=== PATIENT | male | born 1980 | race Caucasian/White ===

== ENCOUNTER 2023-06-01 17:27 | Emergency (ER) | payer MEDICARE, SELFPAY ==
--- NOTE | 2023-06-01 17:32 | ED.MALEGU ---
HPI - Male Genitourinary General Chief complaint: Urogenital-Male Stated complaint: Penis Pain Time Seen by Provider: 06/01/23 17:50 Source: patient and RN notes reviewed Mode of arrival: ambulatory Limitations: no limitations History of Present Illness HPI Narrative: 42-year-old male presents concern for penile shaft pain. He reports he only has the pain when he has direction and there was pressure applied to his penis such as from his clothes in the morning. He is currently not having pain. He denies dysuria, frequency, urgency, abdominal pain. He denies testicular or scrotal redness, swelling, pain. He denies penile discharge or exposure to STDs. He reports history of Peyronie disease for which had similar symptoms and he has had a temporary medication. Related Data Home Medications Medication Instructions Recorded Confirmed cariprazine 1.5 mg capsule 1.5 mg PO DAILY 06/01/23 06/01/23 (Vraylar) gabapentin 100 mg capsule 100 mg PO DIRECTED 06/01/23 06/01/23 lamotrigine 200 mg tablet 200 mg PO HS 06/01/23 06/01/23 linaclotide 72 mcg capsule 72 mcg PO DIRECTED 06/01/23 06/01/23 (Linzess) Allergies Allergy/AdvReac Type Severity Reaction Status Date / Time No Known Allergies Allergy Verified 06/01/23 17:38 Review of Systems Review of Systems: CONSTITUTIONAL: Denies malaise, chills, sweats, or fever. CARDIOVASCULAR: Denies chest pain, palpitations, or edema. RESPIRATORY: Denies cough or dyspnea. GASTROINTESTINAL: Denies abdominal pain, nausea, vomiting, diarrhea GENITOURINARY: Denies dysuria, frequency, urgency, suprapubic pressure. Denies flank pain or hematuria. Reports penile shaft pain when direct. Denies penile discharge SKIN: Denies lesions, rash or itching. MUSCULOSKELETAL: Denies back pain or myalgia. All systems reviewed & are unremarkable except as noted in HPI and below PMFSH Social History Social History (Updated 04/27/19 @ 08:57 by Marce Eduardo) Smoking status: Smoker, status unknown Gender identity (if verbalized by the patient): Male Comments At time of signature, agree with nursing past medical, surgical, social and family history. There is no relevant family history pertinent to the presenting complaint Exam Narrative: GENERAL: Well-appearing, well-nourished, and in no acute distress. HEAD: Normocephalic. EYES: PERRLA, conjunctivae clear. NECK: Supple. No lymphadenopathy CHEST: Clear to auscultation. No respiratory distress. HEART: Regular rate and rhythm. ABDOMEN: Soft, nontender upon palpation, nondistended, normal active bowel sounds, no palpable or pulsatile masses, no guarding. No CVA tenderness SKIN: Warm, dry, no rash. NEURO: Alert and oriented x3. PSYCH: Normal mood and affect : Male General Exam: Yes normal external exam Penis: Yes normal penis and Yes circumcised Meatus: meatus normal Scrotum: scrotum normal Testes: Testes normal Course Course Emergency Course: Discussed normal exam findings with patient. I advised patient that I am not comfortable prescribing most medications that help pay pronators disease. I will prescribe a short dose of a supplement that may help while he waits to see Urology for further evaluation. Patient is aware of, understands and agrees to treatment plan. Anticipatory guidance given. Patient agrees to follow-up as directed and is aware of reasons to seek care at the emergency department. Portions of this record may have been created with voice recognition software Level of Care: [facility] Visit Vital Signs Vital signs: Reviewed. MDM - Male Genitourinary MDM Narrative Medical decision making narrative: Exam findings show no acute concerns or changes; patient is non-toxic appearing and is in no distress. Patient is appropriate for outpatient treatment and follow-up. Differential Diagnosis Differential diagnosis: Likely urinary tract infection, priapism, urethritis, epididymitis, genital herpes simplex
[2023-06-01 17:38] VITALS: BP 113/98; PULSE 79; RESP 16; TEMP 36.1; O2SAT 100
[2023-06-01 17:40] VITALS: BP 113/98; PULSE 79; RESP 16; TEMP 36.1; O2SAT 100
== END 2023-06-01 18:02 | disposition home or self-care (01) ==
PROVIDERS: Emergency Provider Nurse Practitioner
DX: N48.89 Other specified disorders of penis (principal); Z79.899 Other long term (current) drug therapy
CPT/HCPCS: 81003; 99203; G0463

== ENCOUNTER 2024-05-31 14:06 | Emergency (ER) | payer MEDICARE, SELFPAY ==
--- NOTE | ~2024-05-31 | XR_ITS ---
EXAM: XR knee LT 3V DATE: 05/31/2024 15:32 HISTORY: pain since hiking, NO INJURY . COMPARISON: None available. FINDINGS: Normal mineralization. No fracture or dislocation. No lytic or blastic lesion. Joint space s are maintained. No erosion or periosteal change. Small-volume joint fluid. IMPRESSION: No acute osseous finding in the left knee. Small knee joint effusion. Reviewed, dictated and finalized at location [facility] [employer] IMPRESSION: No acute osseous finding in the left knee. Small knee joint effusio n.
[2024-05-31 14:46] VITALS: BP 113/73; PULSE 83; RESP 16; TEMP 36.8; O2SAT 98
--- NOTE | 2024-05-31 15:25 | ED_ITS ---
HPI - Extremity Injury (Lower) General Chief Complaint: Extremity Injury, Lower Stated Complaint: L LEG PAIN Time Seen by Provider: 05/31/24 15:15 Source: patient, RN notes reviewed and old records reviewed Mode of arrival: ambulatory Limitations: no limitations History of Present Illness HPI Narrative: 43-year-old male presents to [facility] with complaints of left knee pain since hiking some trails in [place] 2 weeks ago. Patient reports that he continues to have some pain in his left knee with his normal daily 45 minute walks and that Ibuprofen is not helping. He states that he wants to get this ch ecked out since he is leaving for trip in 1 week. that will involve lot of walking. Patient has no obvious deformity to his left knee with no swelling noted is able to walk with steady gait full ROM present. MD complaint: knee injury Onset (ago): week(s) (2) Type of Injury: unknown Place: street/outdoors Severity: moderate Treatments prior to arrival: NSAIDS Related Data Home Medications ?Medication ?Instructions ?Recorded ?Confirmed ?Last Taken ?Type cariprazine 1.5 mg capsule 1.5 mg PO DAILY 06/01/23 07/09/23 Unknown History (Vraylar) gabapentin 100 mg capsule 100 mg PO DIRECTED 06/01/23 07/09/23 Unknown History lamotrigine 200 mg tablet 200 mg PO HS 06/01/23 07/09/23 Unknown History linaclotide 72 mcg capsule 72 mcg PO DIRECTED 06/01/23 07/09/23 Unknown His tory (Linzess) quetiapine 100 mg tablet 100 mg PO QHS 07/09/23 07/09/23 Unknown History cariprazine 3 mg capsule (Vraylar) mg 05/31/24 Unknown History Allergies Allergy/AdvReac Type Severity Reaction Status Date / Time fire ants AdvReac Intermediate Anaphylaxis Uncoded 05/31/24 15:00 Review of Systems Review of Systems: CONSTITUTIONAL: Denies fever, chills, or sweats. EYES: Denies visual changes, redness, or discharge. ENT: Denies rhinorrhea, congestion, sore throat, or otalgia. CARDIOVASCULAR: Denies chest pain, palpitations, or edema. RESPIRATORY: Denies cough or dyspnea. GASTROINTESTINAL: Denies abdominal pain, nausea, vomiting, or diarrhea. GENITOURINARY: Denies dysuria or hematuria. SKIN: Denies rash or itching. MUSCULOSKELETAL: Denies back pain,pain to left knee joint or myalgia. NEUROLOGIC: Denies headache, numbness, or weakness. PSYCHIATRIC: Reports history of anxiety or depression. All systems reviewed & are unremarkable except as noted in HPI and below PMFSH Past Medical History Medical History Depression History of hepatitis Irritable bowel syndrome Anxiety Social History Social History Smoking packs per day: 0 Smoking cigarettes per day: 0.0 Smoking status: Smoker, status unknown Second hand tobacco smoke exposure: No Alcohol intake: current Drinks per week: 2 Alcohol use details: beer, vodka, rum Lack of Transportation: No Lack of Food: Never True Current Housing: I Have Housing Concerned About Future Housing: No Difficulty Paying Gas/Electric Bills: No Difficulty Paying for Meds: No Currently Unemployed: Decline to Answer Education: High School Diploma/GED Difficulty w/ Childcare or Family Care: No Gender identity (if verbalized by the patient): Male Comments At time of signature, agree with nursing past medical, surgical, social and family history. There is no relevant family history pertinent to the presenting complaint Exam Narrative: GENERAL: Well-appearing, well-nourished, and in no acute distress. HEAD: Normocephalic, atraumatic. EYES: PERRLA and EOMI. ENT: Nares clear, no rhinorrhea or epistaxis. Mucous membranes moist.TM's normal throat pink with no swelling NECK: Supple. no lymphadenopathy CHEST: Clear to auscultation. No respiratory distress.SAO2 98% on room air HEART: Regular rate and rhythm. No murmur heard. Normal peripheral pulses. ABDOMEN: Soft, nontender, nondistended, normal active bowel sounds. EXTREMITIES: Normal range of motion. No edema. Patient reports pain to anterior aspect of left knee with no swelling present. Patient reports that pain is aggravated by activity., patient has full ROM of left knee with no increase in pain with bending no posterior knee swelling or pain noted.CSM intact to left knee SKIN: Warm, dry, no rash. NEURO: No focal deficits. Alert and oriented x3. Course Course Emergency Course: Patient is aware of diagnosis, understands and agrees to treatment plan.? Anticipatory guidance given.? Patient agrees to follow-up as directed and is aware of reasons to seek care at the emergency department. Portions of this record may have been created with voice recognition software Level of Care: [facility] Visit Vital Signs Vital signs: Vital Signs Temperature 36.8 C 05/31/24 14:46 Pulse Rate 83 05/31/24 14:46 Respiratory Rate 16 05/31/24 14:46 Blood Pressure 113/73 05/31/24 14:46 Pulse Oximetry 98 05/31/24 14:46 Temperature 36.8 C 05/31/24 14:46 Pulse Rate 83 05/31/24 14:46 Respiratory Rate 16 05/31/24 14:46 Blood Pressure 113/73 05/31/24 14:46 Pulse Oximetry 98 05/31/24 14:46 Reviewed MDM - Extremity Injury (Lower) Differential Diagnosis Differential diagnosis: Likely acute internal derangement of knee and other (left knee strain, joint effusion left knee.,pain left knee) Medical Records Attestation: I reviewed the patient's medical records. Imaging Data Attestation: I personally reviewed and interpreted this imaging study as follows: My impression: small knee joint effusion, no fracture or misalignment Radiologist's impression: [facility] [address] [place] [address] XRay Report Signed Patient: Marbin Hogan : 1980 MR#: [id number] Age: 43 Acct:[id number] Loc: [facility] ADM Date: 05/31/24Attending Dr: Ordering Physician: Saira Ramirez APRN Date of Service: 05/31/24 Procedure(s): XR knee LT 3V Accession Number(s): [id number] cc: Saira Ramirez APRN; UNKNOWN,DOCTOR~ EXAM: XR knee LT 3V DATE: 05/31/2024 15:32 HISTORY: pain since hiking, NO INJURY . COMPARISON: None available. FINDINGS: Normal mineralization. No fracture or dislocation. No lytic or blastic lesion. Joint spaces are maintained. No erosion or periosteal change. Small-volume joint fluid. IMPRESSION: No acute osseous finding in the left knee. Small knee joint effusion. Reviewed, dictated and finalized at location [facility] [employer] Please be advised this is a medical document. It is intended for [id number] communication. It is written in medical language and may contain unfamiliar abbreviations or verbiage. Medical documents are intended to carry relevant information, facts as evident, and the clinical opinion of the practitioner at the time of the encounter. This report may have been done utilizing a voice recognition system. Attempts have been made to correct errors. However, there may be uncorrected grammatical, spelling, and recognition errors present. The file time of this note does not necessarily represent the time the patient was seen. Dictated By: Liam Castro MD 05/31/24 1534 Signed By: <Electronically signed by Liam Castro MD in OV> Critical Care Time Critical Care Time Critical Care Time: No Discharge Plan Discharge Clinical Impression: Effusion of left knee joint Knee pain, left Qualifiers: Chronicity: acute Qualified Code(s): M25.562 - Pain in left knee Patient Disposition: Home, Self-Care Condition: Stable Instructions: Swollen Knee Joint (ED) Additional Instructions: Elastic wrap or orthopedic splint as directed for comfort for the next 5-7 days Tylenol for lesser pain Ibuprofen regularly for the next 2-3 days for the inflammation Follow-up with orthopedic surgeon if no improvement after 10 days Follow-up with PCP if further problems or concerns Ice to the area 20-30 minutes 4-6 times a day Elevate above heart Patient Language: Swazi Prescriptions: No Action lamotrigine 200 mg tablet 200 mg PO HS gabapentin 100 mg capsule 100 mg PO DIRECTED Vraylar 1.5 mg capsule 1.5 mg PO DAILY Linzess 72 mcg capsule 72 mcg PO DIRECTED Vraylar 3 mg capsule quetiapine 100 mg tablet 100 mg PO QHS Follow-up/Referrals: UNKNOWN,DOCTOR [Primary Care Provider] - Time of Disposition: 16:14 Quality [place] Coma Scale Eyes: Open Verbal: Oriented and Alert Motor: Follows Commands [place] Coma Total Score: 15
== END 2024-05-31 16:17 | disposition home or self-care (01) ==
PROVIDERS: Emergency Provider Registered Nurse
DX: M25.462 Effusion, left knee (principal); K58.9 Irritable bowel syndrome, unspecified; F41.8 Other specified anxiety disorders; Z87.891 Personal history of nicotine dependence
CPT/HCPCS: 73562; 99213; G0463

== ENCOUNTER 2024-10-05 13:09 | Emergency (ER) | payer MEDICARE, SELFPAY ==
[2024-10-05 13:20] VITALS: BP 106/78; PULSE 101; RESP 16; TEMP 36.2; O2SAT 99
[2024-10-05 13:41] LABS: Glucose Point of Care 100 mg/dl (65-105)
[2024-10-05 13:44] LABS: EDUAAPPEAR Clear; EDUABILI Negative (Negative); EDUABLOOD Negative (Negative); EDUACOLOR1 Yellow; EDUAGLUCOSE Negative (Negative); EDUAKETONE Negative (Negative); EDUALEUKO Negative (Negative); EDUANITRATE Negative (Negative); EDUAPH 6.5; EDUAPROTEIN Negative (Negative); EDUASPGRAVITY 1.025; EDUAUROBILI 0.2
--- NOTE | 2024-10-05 13:59 | ED.GENADULT ---
HPI - General Adult General Chief complaint: Urogenital-Male Stated complaint: Uti Symptoms Source: patient History of Present Illness HPI narrative: Patient presents for evaluation of urinary frequency for the last 2 weeks. He denies any dysuria, urethral discharge, testicular pain, hesitancy, decreased force of urinary stream, hematuria, abdominal pain, low back pain. He is not diabetic. He has not been sexually active in several years. He indicates he wakes from sleep approximately every 45 minutes to urinate. He is also concerned about swelling and redness to the skin surrounding the nail plate 3rd digit of the left hand for the last 4 days. Related Data Home Medications ?Medication ?Instructions ?Recorded ?Confirmed ?Last Taken ?Type cariprazine 1.5 mg capsule 1.5 mg PO DAILY 06/01/23 07/09/23 Unknown History (Vraylar) gabapentin 100 mg capsule 100 mg PO DIRECTED 06/01/23 10/05/24 Unknown History lamotrigine 200 mg tablet 200 mg PO HS 06/01/23 10/05/24 Unknown History linaclotide 72 mcg capsule 72 mcg PO DIRECTED 06/01/23 07/09/23 Unknown History (Linzess) quetiapine 100 mg tablet 100 mg PO QHS 07/09/23 07/09/23 Unknown History cariprazine 3 mg capsule (Vraylar) mg 05/31/24 Unknown History quetiapine 25 mg tablet mg 10/05/24 Unknown History Allergies Allergy/AdvReac Type Severity Reaction Status Date / Time fire ants AdvReac Intermediate Anaphylaxis Uncoded 10/05/24 13:20 Review of Systems Review of Systems: CONSTITUTIONAL: Denies fever, chills, or sweats. EYES: Denies visual changes, redness, or discharge. ENT: Denies rhinorrhea, congestion, sore throat, or otalgia. CARDIOVASCULAR: Denies chest pain, palpitations, or edema. RESPIRATORY: Denies cough or dyspnea. GASTROINTESTINAL: Denies abdominal pain, nausea, vomiting, or diarrhea. GENITOURINARY: reports urinary frequency. Denies dysuria, Hematuria, decreased force of urinary stream, urethral discharge or testicular pain.. SKIN: Reports redness and swelling to the skin surrounding the nail plate of the 3rd digit of the left hand. MUSCULOSKELETAL: Denies back pain, joint pain, or myalgia. NEUROLOGIC: Denies headache, numbness, dizziness, or weakness. PSYCHIATRIC: Denies anxiety or depression. [facility] Past Medical History Medical History Depression History of hepatitis Irritable bowel syndrome Anxiety Surgical History Surgical History No pertinent past surgical history Family History Family History Mother Family history non-contributory Social History Social History Smoking packs per day: 0 Smoking cigarettes per day: 0.0 Smoking status: Smoker, status unknown Second hand tobacco smoke exposure: No Alcohol intake: current Drinks per week: 2 Alcohol use details: beer, vodka, rum Lack of Transportation: No Lack of Food: Never True Current Housing: I Have Housing Concerned About Future Housing: No Difficulty Paying Gas/Electric Bills: No Difficulty Paying for Meds: No Currently Unemployed: Decline to Answer Education: High School Diploma/GED Difficulty w/ Childcare or Family Care: No Gender identity (if verbalized by the patient): Male Exam Narrative: GENERAL: Well-appearing, well-nourished, and in no acute distress. HEAD: Normocephalic, atraumatic. EYES: PERRLA and EOMI. ENT: Nares clear, no rhinorrhea or epistaxis. Mucous membranes moist. Oropharynx without tonsillar hypertrophy exudate or other lesions. Bilateral TMs pearly sales nonbulging NECK: Supple. No adenopathy or masses. No carotid bruits or JVD CHEST: Clear to auscultation. No respiratory distress. No wheezes rales or rhonchi HEART: Regular rate and rhythm. No murmur heard. Normal peripheral pulses. ABDOMEN: Soft, nontender, nondistended, normal active bowel sounds. EXTREMITIES: Normal range of motion. SKIN: there is redness and swelling to the skin surrounding the nail plate of the 3rd digit of the left hand PROSTATE: prostate is not boggy. No enlargement. No nodules palpated. NEURO: No focal deficits. Alert and oriented x3. PSYCH: Normal mood and affect. Course Course Emergency Course: This is a 44-year-old male who presented for evaluation of urinary frequency. He had no evidence of infection in his urine today. Blood sugar was checked and was 100. prostate exam is normal. Etiology unclear. He does not drink caffeine frequently. He was advised to follow-up with his primary care provider. Terms of the swelling to the 3rd digit of left hand, this is consistent with paronychia. Will discharge with Bactrim and Keflex. Go to the ER for worsening symptoms. Pt in agreement with plan of care. Level of Care: Express [facility] Visit Vital Signs Vital signs: Vital Signs Temperature 36.2 C L 10/05/24 13:20 Pulse Rate 101 H 10/05/24 13:20 Respiratory Rate 16 10/05/24 13:20 Blood Pressure 106/78 10/05/24 13:20 Pulse Oximetry 99 10/05/24 13:20 Temperature 36.2 C L 10/05/24 13:20 Pulse Rate 101 H 10/05/24 13:20 Respiratory Rate 16 10/05/24 13:20 Blood Pressure 106/78 10/05/24 13:20 Pulse Oximetry 99 10/05/24 13:20 Medical Decision Making Vital Signs Vital Signs: Vital Signs Temperature 36.2 C L 10/05/24 13:20 Pulse Rate 101 H 10/05/24 13:20 Respiratory Rate 16 10/05/24 13:20 Blood Pressure 106/78 10/05/24 13:20 Pulse Oximetry 99 10/05/24 13:20 Temperature 36.2 C L 10/05/24 13:20 Pulse Rate 101 H 10/05/24 13:20 Respiratory Rate 16 10/05/24 13:20 Blood Pressure 106/78 10/05/24 13:20 Pulse Oximetry 99 10/05/24 13:20 Lab Data Labs: Lab Results 10/05/24 10/05/24 Range/Units 13:37 13:41 POC Capillary Glucose 100 (65-105) mg/dl POC Urine Color Yellow POC Urine Clarity Clear POC Urine pH 6.5 POC Ur Specif [place] 1.025 POC Urine Protein Negative (Negative) POC Ur Glucose (UA) Negative (Negative) POC Urine Ketones Negative (Negative) POC Urine Blood Negative (Negative) POC Urine Nitrite Negative (Negative) POC Urine Bilirubin Negative (Negative) POC Urine Urobilinogen 0.2 POC U Leukocyte Esteras Negative (Negative) Discharge Plan Discharge Clinical Impression: Urinary frequency, Paronychia Patient Disposition: Home Condition: Stable Instructions: Antibiotic Form, Paronychia (ED), Urinary Urgency and Frequency (DC) Patient Language: Kazakh Prescriptions: New cephalexin 500 mg capsule 500 mg PO Q8H Qty: 30 0RF sulfamethoxazole-trimethoprim [Bactrim DS] 800-160 mg tablet 1 tablet PO Q12H Qty: 20 0RF No Action lamotrigine 200 mg tablet 200 mg PO HS gabapentin 100 mg capsule 100 mg PO DIRECTED Vraylar 1.5 mg capsule 1.5 mg PO DAILY Linzess 72 mcg capsule 72 mcg PO DIRECTED quetiapine 25 mg tablet Vraylar 3 mg capsule quetiapine 100 mg tablet 100 mg PO QHS Follow-up/Referrals: Luan Rinaldi DO [Physician] - Time of Disposition: 13:43
[2024-10-05 21:19] LABS: Trichomonas Vag PCR NOT DETECTED (NOT DETECTE)
[2024-10-05 21:43] LABS: Chlamydia trachomatis NOT DETECTED (NOT DETECTE); Neisseria gonorrhoeae PCR NOT DETECTED (NOT DETECTE)
== END 2024-10-05 13:50 | disposition home or self-care (01) ==
PROVIDERS: Emergency Provider Nurse Practitioner
DX: R35.0 Frequency of micturition (principal); L03.012 Cellulitis of left finger; F32.A Depression, unspecified
CPT/HCPCS: 81003; 82948; 87491; 87591; 87661; 99213; G0463

== ENCOUNTER 2025-01-14 11:47 | Emergency (ER) | payer MEDICARE, SELFPAY ==
[2025-01-14 12:00] VITALS: BP 109/82; PULSE 92; RESP 16; TEMP 36.8; O2SAT 99
--- NOTE | 2025-01-14 12:08 | ED.NAVMDI ---
HPI - Nausea/Vomiting/Diarrhea General Chief complaint: Nausea/Vomiting/Diarrhea Stated complaint: Vomiting Time Seen by Provider: 01/14/25 12:19 Source: patient, RN notes reviewed and old records reviewed Mode of arrival: ambulatory Limitations: no limitations History of Present Illness HPI Narrative: 44-year-old male presents to the [facility] with complaints of vomiting last weekend, both Wednesday and Wednesday your reports significant vomiting, denies abdominal pain. States that through the week he was better, today he vomited 1 time. Denies any pain has had cramping and an episode of diarrhea. Has taken 1 dose of Pepto-Bismol just prior to arrival Denies any chest pain shortness of breath. Denies any current belly pain. Related Data Home Medications ?Medication ?Instructions ?Recorded ?Confirmed ?Last Taken ?Type gabapentin 100 mg capsule 100 mg PO DIRECTED 06/01/23 01/14/25 Unknown History lamotrigine 200 mg tablet 200 mg PO HS 06/01/23 01/14/25 Unknown History quetiapine 100 mg tablet 100 mg PO QHS 07/09/23 01/14/25 Unknown History cariprazine 3 mg capsule (Vraylar) 3 mg PO Q24H 05/31/24 01/14/25 Unknown History quetiapine 25 mg tablet 25 mg PO DAILY 10/05/24 01/14/25 Unknown History bupropion HCl 150 mg 24 hr tablet, 150 mg PO DAILY 01/14/25 01/14/25 Unknown History extended release ergocalciferol (vitamin D2) 1,250 50,000 unit PO WEEKLY 01/14/25 01/14/25 Unknown History mcg (50,000 unit) capsule oxybutynin chloride 10 mg 10 mg PO DAILY 01/14/25 01/14/25 Unknown History tablet,extended release 24 hr tadalafil 5 mg tablet 5 mg PO DAILY 01/14/25 01/14/25 Unknown History Allergies Allergy/AdvReac Type Severity Reaction Status Date / Time fire ants AdvReac Intermediate Anaphylaxis Uncoded 01/14/25 11:55 Review of Systems Review of Systems: All systems reviewed & are unremarkable except as noted in HPI and below Constitutional: Constitutional: Reports no additional constitutional complaints ENT: Reports system reviewed and no additional complaints, except as documented Cardiovascular: Cardiovascular: Reports no additional cardiovascular complaints, Denies chest pain and Denies dyspnea Respiratory: Respiratory: Reports no additional respiratory complaints, Denies chest congestion, Denies cough and Denies dyspnea Gastrointestinal: Gastrointestinal: Reports as per HPI, Reports diarrhea, Reports nausea and Reports vomiting Musculoskeletal: Musculoskeletal: Reports no additional musculoskeletal complaints Integumentary/Breasts: Skin/Breast: Reports system reviewed and no additional complaints, except as docu PMFSH Past Medical History Medical History Depression History of hepatitis Irritable bowel syndrome Anxiety Surgical History Surgical History No pertinent past surgical history Family History Family History Mother Family history non-contributory Social History Social History Smoking packs per day: 0 Smoking cigarettes per day: 0.0 Smoking status: Smoker, status unknown Second hand tobacco smoke exposure: No Alcohol intake: current Drinks per week: 2 Alcohol use details: beer, vodka, rum Lack of Transportation: No Lack of Food: Never True Current Housing: I Have Housing Concerned About Future Housing: No Difficulty Paying Gas/Electric Bills: No Difficulty Paying for Meds: No Currently Unemployed: Decline to Answer Education: High School Diploma/GED Difficulty w/ Childcare or Family Care: No Gender identity (if verbalized by the patient): Male Comments At the time of my signature, I reviewed and agree with the nursing past medical, surgical, social, and family history. There is no relevant family history pertinent to the patient complaint. Exam Const: General: cooperative, healthy appearing, comfortable, no acute distress, well developed, alert and well nourished Nutritional Appearance: well nourished Orientation/consciousness: patient oriented x3 Limitations: no limitations HENMT: Head: normal to inspection Mouth: Yes Normal oral and palatal mucosa present, Yes lip normal, Yes tongue normal and Yes moist mucous membranes Eyes: General: appearance normal, both eyes and all related structures Alignment and Position: alignment normal Neck: Neck: normal visual inspection, full ROM, no lymphadenopathy and no meningeal signs Chest: Chest palpation & inspection: normal inspection of the chest Resp: Effort & Inspection: normal respiratory effort and able to speak in complete sentences Auscultation: clear to auscultation bilaterally, no crackles, no rales, no rhonchi and no wheezes Cardio: Rate: regular rate GI: GI Palp: No abdominal tenderness Auscultation: normal bowel sounds Skin: General skin exam: normal color and no rashes or lesions noted Neuro: General: patient oriented x3, gait normal, moves all extremities and no meningeal signs Cognition (Neuro): normal cognition Speech: normal speech Gait exam (Neuro): Normal gait present Extrem: General: normal to inspection, full ROM, capillary refill normal and normal gait Psych: Appearance: grossly normal and well kempt Mental Status: mental status grossly normal Speech and movement: Normal speech and movement present and Clear speech present Affect: normal affect Attitude: cooperative Course Course Level of Care: Express Care Visit Vital Signs Vital signs: Vital Signs Temperature 98.2 F 01/14/25 12:00 Pulse Rate 92 01/14/25 12:00 Respiratory Rate 16 01/14/25 12:00 Blood Pressure 109/82 01/14/25 12:00 Pulse Oximetry 99 01/14/25 12:00 Temperature 98.2 F 01/14/25 12:00 Pulse Rate 92 01/14/25 12:00 Respiratory Rate 16 01/14/25 12:00 Blood Pressure 109/82 01/14/25 12:00 Pulse Oximetry 99 01/14/25 12:00 Reviewed MDM - Nausea/Vomiting/Diarrhea MDM Narrative Medical decision making narrative: Patient sitting in exam room. Patient is nontoxic, vitals stable. Patient does not appear dehydrated. Patient reports multiple episodes of vomiting last weekend, was fine through the week, 1 episode of vomiting today. Patient states ?I am concerned. ? Discussed eating, a taking [id number] products, will prescribe Zofran Discussed in detail signs and symptoms and to proceed to the emergency room Discharge instructions reviewed with patient, as well as provided in writing per nursing staff. The instructions also include specific and strict return/GO TO THE ER as well as f/u information. All questions have been answered, and the patient deny any further questions with discharge and discharge plan. Some parts of this dictation were generated by voice recognition software and may contain typographical and/or grammatical inaccuracies. Differential Diagnosis Differential diagnosis: Likely traveler's diarrhea, food poisoning, gastroenteritis, clostridium difficile infection, drug-induced nausea and vomiting, dehydration and other Critical Care Time Critical Care Time Critical Care Time: No Discharge Plan Discharge Clinical Impression: Intermittent vomiting Diarrhea Qualifiers: Diarrhea type: unspecified type Qualified Code(s): R19.7 - Diarrhea, unspecified Patient Disposition: Home Condition: Stable Instructions: Acute Nausea and Vomiting (ED) Additional Instructions: Avoid any food that is fried, greasy, spicy or highly processed. Stay hydrated with plenty of water, Gatorade, Pedialyte, ice pops in Jell-O Take Zofran as needed for nausea Follow-up with primary care provider if symptoms are not improving For worsening symptoms please go directly to the emergency room Patient Language: Niuean Prescriptions: New ondansetron 4 mg tablet,disintegrating 4 mg PO Q8H PRN (Reason: nausea and vomiting) Qty: 7 0RF No Action lamotrigine 200 mg tablet 200 mg PO HS gabapentin 100 mg capsule 100 mg PO DIRECTED quetiapine 25 mg tablet 25 mg PO DAILY bupropion HCl 150 mg tablet extended release 24 hr 150 mg PO DAILY ergocalciferol (vitamin D2) 1,250 mcg (50,000 unit) capsule 50,000 unit PO WEEKLY oxybutynin chloride 10 mg tablet extended release 24hr 10 mg PO DAILY tadalafil 5 mg tablet 5 mg PO DAILY Vraylar 3 mg capsule 3 mg PO Q24H quetiapine 100 mg tablet 100 mg PO QHS Follow-up/Referrals: PHYSICIAN,SKIN LIFTER BACON [Primary Care Provider] - Time of Disposition: 12:37
== END 2025-01-14 12:41 | disposition home or self-care (01) ==
PROVIDERS: Emergency Provider Nurse Practitioner
DX: R11.10 Vomiting, unspecified (principal); R19.7 Diarrhea, unspecified; F41.9 Anxiety disorder, unspecified; F32.A Depression, unspecified
CPT/HCPCS: 99213; G0463